=== PATIENT | male | born 1995 | race Two or more races ===

== ENCOUNTER 2025-04-21 12:02 | Emergency (ER) | payer OTHER, SELFPAY ==
[2025-04-21 12:47] VITALS: BP 143/85; PULSE 95; RESP 19; TEMP 36.9; O2SAT 99; BMI 28.1
--- NOTE | 2025-04-21 12:54 | XR_ITS ---
EXAMINATION: Ultrasound Doppler sonogram right upper extremity Date and time: April 21, 2025, 1339 hours INDICATIONS: Right arm numbness and discoloration today TECHNIQUE AND FINDINGS: Sonographic assessment including Doppler waveform analysis of the arterial system right upper extremity No elevation of peak systolic velocities involving right subclavian, right axillary, right brachial, right radial or ulnar arteries No significant stenoses depicted IMPRESSION: No arterial stenoses right upper extremity
--- NOTE | 2025-04-21 12:59 | EDNOTE_ITS ---
<Statement entered by Nereida Zavala MD - 04/28/25 14:18> As co-signing physician, I was present and available for consult prn. I concur with the plan and care as documented by the midlevel provider. ED General RME/HPI General Chief complaint: Extremity Injury, Upper Stated complaint: PAIN/NUMBNESS R) ARM Time Seen by Provider: 04/21/25 12:14 Arrival date/time: 04/21/25 12:02 CC: Purple arm HPI patient, while working yesterday had his arm turned purple for a brief amount of time before spontaneously resolving following that the patient stated his arm became numb. Patient denies any prior history of similar events. Patient is right-handed and is the right arm that is aff ected. Related Data Allergies Allergy/AdvReac Type Severity Reaction Status Date / Time No Known Allergies Allergy Verified 04/21/25 12:06 Review of Systems Review of Systems Narrative Review of Systems: GEN: No fever, no chills, no weight loss EYES: No discharge, no visual changes, no pain HEENT: No ear pain, no congestion, no sore throat PULM: No shortness of breath, no cough, no congestion CV: No chest pain, no dyspnea on exertion, no palpitations GI: No nausea, no vomiting, no diarrhea, no pain, no constipation : No frequency, no urgency, no dysuria MUSC/SKEL: No joint pain, no back pain SKIN: No rash PSYCH: No hallucinations, no depression HEME/LYMPH: No easy bleeding or bruising tendencies NEURO: No weakness, no headache Past Medical History Social History SMOKING STATUS: Never smoker ED Exam Narrative Physical exam: [General: Not in any acute distress Head normocephalic HEENT: Within acceptable limits Neck is supple nontender Chest equal chest rise nontender to palpation Respiratory: Clear to auscultation no wheezes crackles or rubs CV: Rate rhythm is regular no murmurs rubs or clicks Abdomen is soft nontender no masses positive bowel sounds all 4 quadrants Back: No CVA tenderness no spinous process tenderness from cervical spine thoracic and lumbar spine Skin: Intact no petechiae rash induration ulceration or crepitus Extremities: Cap refill in the right fingertips at 3 seconds, brisk and less than 2 seconds in the right arm. Moving all extremities against resistance cap refill less than 2 seconds neurosensory intact Neuro: Awake alert oriented x3 Glascow coma 15 no focal deficits] Course Course Course Narrative: Reexamination of this patient at 1534 shows the patient has had no diminished pulses no pallor in the right upper extremity throughout the visit in the emergency room. I suspect this may have been an vasospasm. Quality Measures none Orders Category Date Time Status US arterial duplex UE RT Stat Exams 04/21/25 12:54 Completed CBC Stat Lab 04/21/25 13:06 Completed CMP [Comprehensive Metabolic Panel] Stat Lab 04/21/25 13:06 Completed PT [Prothrombin Time with INR] Stat Lab 04/21/25 13:06 Completed PTT [Partial Thromboplastin Time] Stat Lab 04/21/25 13:06 Completed Vital Signs Vital signs: Vital Signs Temperature 98.4 F 04/21/25 12:47 Pulse Rate 95 04/21/25 12:47 Respiratory Rate 19 04/21/25 12:47 Blood Pressure 143/85 H 04/21/25 12:47 Pulse Oximetry (%) 99 04/21/25 12:47 Oxygen Delivery Method Room Air 04/21/25 12:47 Discharge Plan Plan Patient Disposition: HOME (Self Care) Patient condition on transfer: Stable Prescriptions/Referrals Referrals: Umang Mendez MD [Primary Care Provider, Family Practice] - In 1 week Problem List Clinical Impression: Vasospasm Impression comment: Transient vasospasm Patient/Caregiver Discharge Instructions Education Materials: Identifying Your Heart Risks Additional Instructions: Monitor, if this reoccurs, take a picture of the arm, follow-up with your primary care doctor if it reoccurs and stays persistent at the pale purple or blue color return to the emergency room for reevaluation. Print Language: Turkish Stand Alone Forms: Maral Award Info., Patient Portal Info Letter PA/TUBE SKIVER Supervising Physician PA/TUBE SKIVER Supervising Physician: Martinez Dennis ENP MDM Clinical Information Provided by: patient Medical Records reviewed [facility] Meds/Rx considered, not ordered None Labs/Rad/Tests considered, not ordered None Chronic Illness/Social Conditions which may negatively complicate care or outcome(s)-explain: None or not applicable Labs Labs: interpreted by or Lab(s) Interpretation(s): CBC shows no acute leukocytosis anemia thrombocytopenia Coags within acceptable limits CMP shows no significant electrolyte imbalances renal impairment transaminitis or T. bili elevation Imaging Imaging interpretation: interpreted by me Imaging Interpretation(s): Arterial ultrasound of the right upper extremity is negative for occlusion or any other finding that requires emergent or immediate intervention.
[2025-04-21 13:56] LABS: Basophils # (Auto) 0.0 Thou/mm3 (0.0-0.2); Basophils % (Auto) 0 % (0-2.5); Eosinophils # (Auto) 0.2 Thou/mm3 (0.0-0.5); Eosinophils % (Auto) 2 % (0-10); Hematocrit 41.4 % (41.0-53.0); Hemoglobin 14.3 g/dL (13.5-16.0); Immature Granulocytes Auto 0.04 Thou/mm3 (0.00-0.00); Lymphocytes # (Auto) 2.5 Thou/mm3 (1.0-4.8); Lymphocytes % (Auto) 29 % (10-50); Mean Corpuscular HGB Conc 34.5 g/dl (31.0-37.0); Mean Corpuscular Hemoglobin 30.4 pg (25.0-35.0); Mean Corpuscular Volume 88 fL (80-100); Monocytes # (Auto) 0.7 Thou/mm3 (0.0-0.8); Monocytes % (Auto) 8 % (0-12); Neutrophils # (Auto) 5.3 Thou/mm3 (1.8-7.7); Neutrophils % (Auto) 61 % (37-80); Nucleated Red Blood Cell # 0.00 Thou/mm3 (0.00-0.00); Nucleated Red Blood Cell % 0 /100 WBC (0); Platelet Count 271 Thou/mm3 (140-440); RDW Standard Deviation 38.8 fL (35.1-43.9); Red Blood Count 4.70 Miln/mm3 (4.50-5.90); White Blood Count 8.7 Thou/mm3 (3.8-10.6)
[2025-04-21 14:11] LABS: INR 1.0 (0.9-1.3); Partial Thromboplastin Time 28.0 Seconds (22.0-36.0); Prothrombin Time 10.8 Seconds (9.0-12.2)
[2025-04-21 14:38] LABS: Alanine Aminotransferase 48 U/L (10-49); Albumin, Serum 5.4 gm/dL (3.5-5.0); Albumin/Globulin Ratio 2.5 (1.2-2.2); Alkaline Phosphatase 61 U/L (46-116); Anion Gap 12 (7-16); Aspartate Amino Transferase 30 U/L (0-34); BUN/Creatinine Ratio 14 Ratio (12-20); Bilirubin,Total 0.5 mg/dL (0.3-1.2); Blood Urea Nitrogen 15 mg/dL (9-23); Calcium 9.7 mg/dL (8.3-10.6); Calcium (Corrected) 9.7 mg/dL (8.5-10.1); Carbon Dioxide 26.5 mMol/L (20.0-31.0); Chloride 101 mMol/L (98-107); Creatinine (Component) 1.1 mg/dL (0.6-1.3); Estimated Creatinine Clearance 102.7 mL/min (>60); Globulin 2.2 gm/dL (2.3-3.5); Glucose 87 mg/dL (74-106); Osmolality,Calculated 277 (275-295); Potassium 4.0 mMol/L (3.4-5.1); Sodium 139 mMol/L (136-145); Total Protein 7.6 gm/dL (5.7-8.2); eGFR > 60 See Note
[2025-04-21 15:45] VITALS: BP 122/78; PULSE 77
== END 2025-04-21 15:45 | disposition home or self-care (01) ==
PROVIDERS: Registered Nurse General Practice; Emergency Provider Emergency Medicine; PCP Family Medicine
DX: I73.9 Peripheral vascular disease, unspecified (principal)
CPT/HCPCS: 36415; 80053; 85025; 85610; 85730; 93931; 99281